=== PATIENT | male | born 1950 | race Asian ===

== ENCOUNTER 2017-09-25 10:49 | Observation (INO) | payer OTHER ==
[2017-09-24 13:22] LABS: HEMATOCRIT 44.9 % (39.2-51.8); HEMOGLOBIN 15.4 g/dL (13.7-18.0)
[2017-09-24 13:28] LABS: ASPARTATE AMINO TRANSFERASE 16 U/L (15-37); BLOOD UREA NITROGEN 12 mg/dL (7-18)
[~2017-09-25] VITALS: Ht 167.6 cm; Wt 80.4 kg
[~2017-09-25 10:49] MED LIST: AMLO2.5T PO; CHOL100011 PO; CITA20TA5 PO; CLOP75TA52 PO; LISI-167 PO; OMEG100023 PO; ROSU5TAB PO
[2017-09-25] MEDS ORDERED: ASPI-515 PO (11:12)
[2017-09-25] MEDS ORDERED: BIVALIRUDIN 250 MG ONE (12:23)
[2017-09-25] MEDS ORDERED: MIDAZOLAM 1 MG/ML, 5ML ONE (12:23)
[2017-09-25] MEDS ORDERED: TICAGRELOR 90 MG TABLET ONE (12:23)
[2017-09-25] MEDS ORDERED: FENTANYL PF 100 MCG/2ML ONE (12:23)
[2017-09-25] MEDS ORDERED: LIDOCAINE 2%, 20ML ONE (12:23)
[2017-09-25] MEDS ORDERED: HEPARIN 1,000 UNITS/ML, 10ML ONE (12:23)
[2017-09-25] MEDS ORDERED: VERAPAMIL 2.5 MG/ML, 2ML ONE (12:23)
[2017-09-25] MEDS ORDERED: CLOPIDOGREL 75 MG TABLET ONE (13:05)
[2017-09-25] MEDS ORDERED: SODIUM CHLORIDE 0.9% 1,000 ML IV SCH (13:47)
[2017-09-25] MEDS ORDERED: PNEUMOCOCCAL 23 VACCINE IM-VACC ONE (18:30)
[2017-09-25] MEDS ORDERED: FLU VACC QS2017-18 (36MOS+) UP/PF 0.5 ML IM-VACC ONE (18:30)
[2017-09-25] MEDS ORDERED: OMEGA-3/FISH OIL CAPSULE PO SCH (21:00)
[2017-09-25] MEDS ORDERED: ATORVASTATIN 10 MG TABLET PO SCH (21:00)
[2017-09-26] MEDS ORDERED: ASPIRIN 81 MG TABLET EC PO SCH ×2 (09:00)
[2017-09-26] MEDS ORDERED: CHOLECALCIFEROL 1,000 UNIT TABLET PO SCH (09:00)
[2017-09-26] MEDS ORDERED: AMLODIPINE 2.5 MG TABLET PO SCH (09:00)
[2017-09-26] MEDS ORDERED: CLOPIDOGREL 75 MG TABLET PO SCH ×2 (09:00)
[2017-09-26] MEDS ORDERED: LISINOPRIL 10 MG TABLET PO SCH (09:00)
== END 2017-09-25 20:49 | disposition home or self-care (01) ==
LOC: CACL 10:49 → ORIP 13:47 → 5SO 15:17
PROVIDERS: ADMIT Internal Medicine Cardiovascular Disease; ATTEND Internal Medicine Cardiovascular Disease
DX: I20.0 Unstable angina (principal); I10 Essential (primary) hypertension; E78.5 Hyperlipidemia, unspecified; I25.2 Old myocardial infarction
CPT/HCPCS: 36415; 80053; 85025; 85610; 85730; 90471; 90472; 90686; 90732; 92920; 93458; 99156; 99157; C1725; C1769; C1887; C1894; G0378; J0583; J1644; J2250; J3010; J3490; Q9967; 92928